=== PATIENT | female | born 1960 | race Caucasian/White ===

== ENCOUNTER 2023-11-19 13:49 | Outpatient (CLI) | payer BC, SELFPAY ==
[2023-11-19 15:10] VITALS: BMI 28.5
== END 2023-11-19 23:59 ==
LOC: DIETICIAN 13:51
PROVIDERS: PCP Family Medicine; Visit Provider Family Medicine
DX: Z71.3 Dietary counseling and surveillance (principal); E11.9 Type 2 diabetes mellitus without complications
CPT/HCPCS: 97802